=== PATIENT | male | born 1950 | race Caucasian/White ===

== ENCOUNTER 2017-06-23 19:04 | Emergency (ER) | payer MEDICARE, OTHER, SELFPAY | END 2017-06-23 21:29 | disposition short-term general hospital (02) | PROVIDERS: Emergency Provider Emergency Medicine; Family Provider Family Medicine; Visit Provider Emergency Medicine | DX: S37.002A Unspecified injury of left kidney, initial encounter (principal); W01.0XXA Fall on same level from slipping, tripping and stumbling without subsequent striking against object, initial encounter; Y92.019 Unspecified place in single-family (private) house as the place of occurrence of the external cause; I10 Essential (primary) hypertension; Z79.899 Other long term (current) drug therapy; Z72.0 Tobacco use | CPT/HCPCS: 71020; 74176; 80053; 81001; 85025; 87086; 99284 ==